=== PATIENT | female | born 1980 | race American Indian/Alaskan Native ===

== ENCOUNTER 2019-01-12 19:14 | Emergency (ER) | payer OTHER ==
[2019-01-12 20:42] LABS: Basophils # (Auto) 0.1 K/mm3 (0.0-0.1); Eosinophils # (Auto) 0.2 K/mm3 (0.0-0.4); Eosinophils % (Auto) 2.4 % (0.0-4.3); Lymphocytes % (Auto) 26.3 % (13.4-35.0); Mean Corpuscular HGB Conc 36 % (30-34); Mean Corpuscular Volume 88 fl (79-97); Monocytes # (Auto) 0.6 K/mm3 (0.0-0.8); Monocytes % (Auto) 7.5 % (0.0-7.3); Platelet Count 242 K/mm3 (140-440); Red Blood Count 4.38 M/mm3 (3.65-5.03)
[2019-01-12 20:58] LABS: Alanine Aminotransferase 31 units/L (7-56); Albumin 3.4 g/dL (3.9-5); BUN/Creatinine Ratio 11; Blood Urea Nitrogen 10 mg/dL (7-17); Calcium 9.2 mg/dL (8.4-10.2); Hemolysis Index 17
[2019-01-12 21:05] LABS: Hematocrit 38.4 % (30.3-42.9); Hemoglobin 13.9 gm/dl (10.1-14.3)
[2019-01-12 21:08] LABS: Bilirubin,Urine NEG (Negative); Blood,Urine NEG (Negative); Color,Urine Straw (Yellow); Protein,Urine <15 mg/dL mg/dL (Negative); Urobilinogen,Urine < 2.0 mg/dL (<2.0)
[2019-01-12] MEDS ORDERED: NACL 0.9% 1000 ML 1,000 ML IV ONE (22:46)
[2019-01-12] MEDS ORDERED: TORADOL IV ONE (22:46)
[2019-01-12] MEDS ORDERED: ZOFRAN IV ONE (22:46)
--- NOTE | 2019-01-12 23:07 | Emergency Department Report ---
ED Abdominal Pain HPI - General Chief Complaint: Abdominal Pain Stated Complaint: STOMACH PAIN Time Seen by Provider: 01/12/19 22:36 Source: patient Mode of arrival: Ambulatory Limitations: No Limitations - History of Present Illness Initial Comments: Pt is a 38 yo female who presents to the ED with c/o lower abd pain that began 5 days ago. she states she has pain with passing gas or having a BM. she states she had a normal BM today. She denies any N/V/D, urinary sx, or vaginal discharge. she denies ever having this before. she denies any PMHx, no allergies to meds. her only abd surgery is a . LNMP: she states she had spotting last week, has an implanon. she denies any tobacco use, drug use, endorses occasional ETOH use. - Related Data Previous Rx's Medication Instructions Recorded Last Taken Type Dicyclomine [Bentyl] 10 mg PO TID PRN #14 capsule 01/13/19 Unknown Rx Simethicone [Gas Relief] 125 mg PO DAILY #10 capsule 01/13/19 Unknown Rx Allergies Allergy/AdvReac Type Severity Reaction Status Date / Time No Known Allergies Allergy Unverified 01/12/19 19:20 ED Review of Systems ROS: Stated complaint: STOMACH PAIN Other details as noted in HPI Comment: All other systems reviewed and negative ED Past Medical Hx - Past Medical History Previous Medical History?: No - Surgical History Past Surgical History?: No - Social History Smoking Status: Never Smoker Substance Use Type: None - Medications Home Medications: Home Medications Medication Instructions Recorded Confirmed Last Taken Type Dicyclomine [Bentyl] 10 mg PO TID PRN #14 capsule 01/13/19 Unknown Rx Simethicone [Gas Relief] 125 mg PO DAILY #10 capsule 01/13/19 Unknown Rx ED Physical Exam - General Limitations: No Limitations General appearance: alert, in no apparent distress - Head Head exam: Present: atraumatic, normocephalic - ENT ENT exam: Present: mucous membranes moist - Respiratory Respiratory exam: Present: normal lung sounds bilaterally. Absent: respiratory distress, wheezes, rales, rhonchi, stridor, chest wall tenderness, accessory muscle use, decreased breath sounds, prolonged expiratory - Cardiovascular Cardiovascular Exam: Present: regular rate, normal rhythm, normal heart sounds. Absent: systolic murmur, diastolic murmur, rubs, gallop - GI/Abdominal GI/Abdominal exam: Present: soft, tenderness (generalized lower quadrants), normal bowel sounds. Absent: distended, guarding, rebound, rigid - Back Exam Back exam: Absent: CVA tenderness (R), CVA tenderness (L) - Neurological Exam Neurological exam: Present: alert, oriented X3 - Psychiatric Psychiatric exam: Present: normal affect, normal mood - Skin Skin exam: Present: warm, dry, intact ED Course Vital Signs 01/12/19 01/12/19 01/13/19 19:19 23:00 00:05 Temperature 98.3 F 98.7 F Pulse Rate 92 H 62 Respiratory 18 16 20 Rate Blood Pressure 113/73 Blood Pressure 114/69 [Left] O2 Sat by Pulse 99 100 Oximetry 01/13/19 03:05 Temperature 98.2 F Pulse Rate 69 Respiratory 16 Rate Blood Pressure Blood Pressure 93/61 [Left] O2 Sat by Pulse 100 Oximetry ED Medical Decision Making - Lab Data Result diagrams: 01/12/19 20:15 01/12/19 20:15 Lab Results 01/12/19 01/12/19 01/12/19 Range/Units 20:15 20:15 20:15 WBC 7.6 (4.5-11.0) K/mm3 RBC 4.38 (3.65-5.03) M/mm3 Hgb 13.9 (10.1-14.3) gm/dl Hct 38.4 (30.3-42.9) % MCV 88 (79-97) fl MCH 32 (28-32) pg MCHC 36 H (30-34) % RDW 13.0 L (13.2-15.2) % Plt Count 242 (140-440) K/mm3 Lymph % (Auto) 26.3 (13.4-35.0) % [place] % (Auto) 7.5 H (0.0-7.3) % Eos % (Auto) 2.4 (0.0-4.3) % Baso % (Auto) 1.0 (0.0-1.8) % Lymph # 2.0 (1.2-5.4) K/mm3 Marin # 0.6 (0.0-0.8) K/mm3 Eos # 0.2 (0.0-0.4) K/mm3 Baso # 0.1 (0.0-0.1) K/mm3 Seg Neutrophils % 62.8 (40.0-70.0) % Seg Neutrophils # 4.8 (1.8-7.7) K/mm3 Sodium 137 (137-145) mmol/L Potassium 3.6 (3.6-5.0) mmol/L Chloride 101.8 (98-107) mmol/L Carbon Dioxide 26 (22-30) mmol/L Anion Gap 13 mmol/L BUN 10 (7-17) mg/dL Creatinine 0.9 (0.7-1.2) mg/dL Estimated GFR > 60 ml/min BUN/Creatinine Ratio 11 % Glucose 90 (65-100) mg/dL Calcium 9.2 (8.4-10.2) mg/dL Total Bilirubin 0.20 (0.1-1.2) mg/dL AST 29 (5-40) units/L ALT 31 (7-56) units/L Alkaline Phosphatase 74 (35-129) units/L Total Protein 7.9 (6.3-8.2) g/dL Albumin 3.4 L (3.9-5) g/dL Albumin/Globulin Ratio 0.8 % HCG, Qual Negative (Negative) Urine Color (Yellow) Urine Turbidity (Clear) Urine pH (5.0-7.0) Ur Specific [place] (1.003-1.030) Urine Protein (Negative) mg/dL Urine Glucose (UA) (Negative) mg/dL Urine Ketones (Negative) mg/dL Urine Blood (Negative) Urine Nitrite (Negative) Urine Bilirubin (Negative) Urine Urobilinogen (<2.0) mg/dL Ur Leukocyte Esterase (Negative) Urine WBC (Auto) (0.0-6.0) /HPF Urine RBC (Auto) (0.0-6.0) /HPF U Epithel Cells (Auto) (0-13.0) /HPF 01/12/19 Range/Units 20:36 WBC (4.5-11.0) K/mm3 RBC (3.65-5.03) M/mm3 Hgb (10.1-14.3) gm/dl Hct (30.3-42.9) % MCV (79-97) fl MCH (28-32) pg MCHC (30-34) % RDW (13.2-15.2) % Plt Count (140-440) K/mm3 Lymph % (Auto) (13.4-35.0) % [place] % (Auto) (0.0-7.3) % Eos % (Auto) (0.0-4.3) % Baso % (Auto) (0.0-1.8) % Lymph # (1.2-5.4) K/mm3 Marin # (0.0-0.8) K/mm3 Eos # (0.0-0.4) K/mm3 Baso # (0.0-0.1) K/mm3 Seg Neutrophils % (40.0-70.0) % Seg Neutrophils # (1.8-7.7) K/mm3 Sodium (137-145) mmol/L Potassium (3.6-5.0) mmol/L Chloride (98-107) mmol/L Carbon Dioxide (22-30) mmol/L Anion Gap mmol/L BUN (7-17) mg/dL Creatinine (0.7-1.2) mg/dL Estimated GFR ml/min BUN/Creatinine Ratio % Glucose (65-100) mg/dL Calcium (8.4-10.2) mg/dL Total Bilirubin (0.1-1.2) mg/dL AST (5-40) units/L ALT (7-56) units/L Alkaline Phosphatase (35-129) units/L Total Protein (6.3-8.2) g/dL Albumin (3.9-5) g/dL Albumin/Globulin Ratio % HCG, Qual (Negative) Urine Color Straw (Yellow) Urine Turbidity Clear (Clear) Urine pH 7.0 (5.0-7.0) Ur Specific [place] 1.010 (1.003-1.030) Urine Protein <15 mg/dl (Negative) mg/dL Urine Glucose (UA) Neg (Negative) mg/dL Urine Ketones Neg (Negative) mg/dL Urine Blood Neg (Negative) Urine Nitrite Neg (Negative) Urine Bilirubin Neg (Negative) Urine Urobilinogen < 2.0 (<2.0) mg/dL Ur Leukocyte Esterase Sm (Negative) Urine WBC (Auto) 2.0 (0.0-6.0) /HPF Urine RBC (Auto) 1.0 (0.0-6.0) /HPF U Epithel Cells (Auto) 2.0 (0-13.0) /HPF - Radiology Data Radiology results: report reviewed PROCEDURE: CT ABDOMEN PELVIS W CON TECHNIQUE: Computerized axial tomography of the abdomen and pelvis was performed after the IV injection of iodinated nonionic contrast. CT DOSE LENGTH PRODUCT: mGycm HISTORY: generalized lower abd pain COMPARISONS: None . FINDINGS: Liver, spleen, pancreas and adrenal glands are within normal limits. Bilateral kidneys demonstrate uniform enhancement without hydronephrosis. Aorta is of normal caliber. There is no free fluid or free air. Gallbladder is contracted. Small bowel loops are within normal limits. Appendix is normal. A 3.2 x 2.3 cm cystic lesion is noted in the right adnexal region. Vertebral height is normal. IMPRESSION: A cystic lesion is noted in the right adnexal region most likely representing an ovarian cyst. Ultrasound evaluation is recommended. Otherwise no acute intra-abdominal or pelvic pathology. This document is electronically signed by Liane Suárez MD., Jan 13 2019 12:06:41 AM ET Transcribed By: [facility] [place]ictated By: LIANE SUÁREZ Electronically Authenticated By: LIANE SUÁREZ Signed Date/Time: 01/13/19 0008 PROCEDURE: US PELVIC COMPLETE TECHNIQUE: Real-time transabdominal sonography in multiple planes of the pelvis was performed. The pelvic structures were not optimally visualized. Transvaginal sonography was then performed to better evaluate the structures and/or abnormalities described below with image documentation. Grayscale, color flow Doppler imaging, and velocity spectral waveform analysis of the ovaries was employed (duplex imaging). HISTORY: cystic structure visualized on CT COMPARISONS: None . FINDINGS: UTERUS Size: 10.6 x 3.6 x 3.4 cm. Endometrial thickness: 5 mm. Orientation: anteverted. Cervix: Normal. Fibroids/masses: There is a posterior myometrium fibroid measuring 19 mm. RIGHT Ovary: 3 x 1.9 x 3.9 cm. Appearance: The echogenicity is normal. There is some fluid surrounding the right adnexa. This may represent sequelae from a hemorrhagic cyst.. Doppler images: Normal spectral waveforms and color flow images of the arterial inflow and venous outflow.. LEFT Ovary: 3.6 x 3 x 3.6 cm. Appearance: There is a dominant cyst on the left ovary this measures 16 mm. Doppler images: Normal spectral waveforms and color flow images of the arterial inflow and venous outflow.. Pelvic fluid: Moderate. IMPRESSION: The uterus size is normal. There is a 19 mm fibroid in the posterior uterine myometrium. There is a 16mm dominant cyst on the left ovary. The right ovary has a normal size and appearance. There is some fluid identified around the right adnexa extending into the pelvis, sequelae from hemorrhagic cyst is possible. This document is electronically signed by Violetta Valero DO., Jan 13 2019 01:55:42 AM ET - Medical Decision Making Pt is a 38 yo female who presents to the ED with c/o lower abd pain that began 5 days ago. she states she has pain with passing gas or having a BM. she states she had a normal BM today. She denies any N/V/D, urinary sx, or vaginal discharge. she denies ever having this before. she denies any PMHx, no allergies to meds. her only abd surgery is a . LNMP: she states she had spotting last week, has an implanon. she denies any tobacco use, drug use, endorses occasional ETOH use. vitals are normal. labs WNL. UA is normal. pt given 1L of fluid. CT abd pelvis showed A cystic lesion is noted in the right adnexal region most likely representing an ovarian cyst. Ultrasound evaluation is recommended. Otherwise no acute intra-abdominal or pelvic pathology. US showed: The uterus size is normal. There is a 19 mm fibroid in the posterior uterine myometrium. There is a 16mm dominant cyst on the left ovary. The right ovary has a normal size and appearance. There is some fluid identified around the right adnexa extending into the pelvis, sequelae from hemorrhagic cyst is possible. advised pt to please follow up with an DIRECT CUSTOMER SERVICE REPRESENTATIVE in the next 2-3 days for further evaluation. pt given gas relief and bentyl, discussed to follow up with PCP in the next 2-3 days. return to the ED for any new or worsening symptoms. drink plenty of water. - Differential Diagnosis appendicitis, colitis, ovarian cyst, fibroids, UTI Critical care attestation.: If time is entered above; I have spent that time in minutes in the direct care of this critically ill patient, excluding procedure time. ED Disposition Clinical Impression: Fibroid Abdominal pain Qualifiers: Abdominal location: generalized Qualified Code(s): R10.84 - Generalized abdom inal pain Ovarian cyst Qualifiers: Laterality: bilateral Qualified Code(s): N83.201 - Unspecified ovarian cyst, right side Disposition: TO HOME OR SELFCARE Is pt being admited?: No Does the pt Need Aspirin: No Condition: Stable Instructions: Ovarian Cyst (ED), Abdominal Pain (ED) Additional Instructions: Please follow up with an DIRECT CUSTOMER SERVICE REPRESENTATIVE in the next 2-3 days. Please follow up with a primary care doctor in the next 2-3 days. return to the emergency room for any n ew or worsening symptoms. Prescriptions: Dicyclomine [Bentyl] 10 mg PO TID PRN #14 capsule PRN Reason: Spasms Simethicone [Gas Relief] 125 mg PO DAILY #10 capsule Referrals: ALLYSON EARLY MD [Primary Care Provider] - 2-3 Days KOKI MAURER MD [Staff Physician] - 2-3 Days [facility] [Provider Group] - 2-3 Days Time of Disposition: 02:20 Print Language: OMANI
--- NOTE | 2019-01-13 00:08 | Cat Scan Report ---
PROCEDURE: CT ABDOMEN PELVIS W CON TECHNIQUE: Computerized axial tomography of the abdomen and pelvis was performed after the IV inject ion of iodinated nonionic contrast. CT DOSE LENGTH PRODUCT: mGycm HISTORY: generalized lower abd pain COMPARISONS: None . FINDINGS: Liver, spleen, pancreas and adrenal glands are within normal limits. Bilateral kidneys demonstrate un iform enhancement without hydronephrosis. Aorta is of normal caliber. There is no free fluid or free air. Gallbladder is contracted. Small bowel loops are within normal limits. Appendix is normal. A 3.2 x 2.3 cm cystic lesion is noted in the right adnexal region. Vertebral height is normal. IMPRESSION: A cystic lesion is noted in the right adnexal region most likely representing an ovarian cyst. Ultras ound evaluation is recommended. Otherwise no acute intra-abdominal or pelvic pathology. This document is electronically signed by Barber Suárez MD., Jan 13 2019 12:06:41 AM ET
--- NOTE | 2019-01-13 01:57 | Ultrasound Report ---
PROCEDURE: US PELVIC COMPLETE TECHNIQUE: Real-time transabdominal sonography in multiple planes of the pelvis was performed. The p elvic structures were not optimally visualized. Transvaginal sonography was then performed to better evaluate the structures and/or abnormalities described below with image documentation. Grayscale, col or flow Doppler imaging, and velocity spectral waveform analysis of the ovaries was employed (duplex imaging). HISTORY: cystic structure visualized on CT COMPARISONS: None . FINDINGS: UTERUS Size: 10.6 x 3.6 x 3.4 cm. Endometrial thickness: 5 mm. Orientation: anteverted. Cervix: Normal. Fibroids/masses: There is a posterior myometrium fibroid measuring 19 mm. RIGHT Ovary: 3 x 1.9 x 3.9 cm. Appearance: The echogenicity is normal. There is some fluid surrounding the right adnexa. This may re present sequelae from a hemorrhagic cyst.. Doppler images: Normal spectral waveforms and color flow images of the arterial inflow and venous out flow.. LEFT Ovary: 3.6 x 3 x 3.6 cm. Appearance: There is a dominant cyst on the left ovary this measures 16 mm. Doppler images: Normal spectral waveforms and color flow images of the arterial inflow and venous out flow.. Pelvic fluid: Moderate. IMPRESSION: The uterus size is normal. There is a 19 mm fibroid in the posterior uterine myometrium. There is a 16mm dominant cyst on the left ovary. The right ovary has a normal size and appearance. There is some fluid identified around the right adn exa extending into the pelvis, sequelae from hemorrhagic cyst is possible. This document is electronically signed by Violetta Valero DO., Jan 13 2019 01:55:42 AM ET
[2019-01-13 03:48] VITALS: BP 93/61
== END 2019-01-13 03:05 | disposition home or self-care (01) ==
LOC: ED 19:14
DX: D25.9 Leiomyoma of uterus, unspecified (principal); N83.201 Unspecified ovarian cyst, right side
CPT/HCPCS: 36415; 74177; 76830; 76856; 80053; 81001; 84703; 85025; 96374; 96375; 99284; J1885; J2405; J7030; Q9967